=== PATIENT | male | born 1960 | race Caucasian/White ===

== ENCOUNTER → 2020-05-09 | Outpatient (CLI) | payer BC ==
--- NOTE | 2020-05-09 11:46 | XR ---
EXAMINATION TYPE: XR KUB DATE OF EXAM: 05/09/2020 9:11 AM CLINICAL HISTORY: Left upper flank pain for one month TECHNIQUE: Supine images of the abdomen and pelvis were obtained. The uppermost aspect of the abdomen and hemidiaphragms are not included on imaging. COMPARISON: None. FINDINGS: The left renal shadow is seen entirety, with overlying tiny densities which may represent c alculi versus fecal contents. The right renal shadow is not completely visualized and obscured by ove rlying bowel gas. The bowel gas pattern is nonspecific. Degenerative changes of the spine and bilater al hips. There is large lateral bridging osteophyte of L1-L2 on the left. Pelvic phleboliths. IMPRESSION: 1. Tiny densities overlying the left renal shadow may represent tiny calculi versus overlying fecal c ontents. The included right renal shadow is obscured by overlying bowel. 2. Nonspecific bowel gas pattern 3. Marked degenerative changes of the spine and bilateral hips.
== END | disposition home or self-care (01) ==
LOC: RADXRMAIN 09:00
PROVIDERS: ATTEND Family Medicine
DX: N28.89 Other specified disorders of kidney and ureter (principal)
CPT/HCPCS: 74018

== ENCOUNTER 2020-06-07 08:48 | Day surgery (SDC) | payer BC ==
[2020-06-05 09:26] VITALS: BMI 30.8
[~2020-06-07 08:48] MED LIST: LACTATED RINGERS 1,000 ML IV SCH; LIDOCAINE 1% (10MG/ML) FOR IV START INTRADERMA PRN
[2020-06-07 09:31] VITALS: TEMP 97.8
[2020-06-07] MEDS ORDERED: PROPOFOL 10 MG/ML 20 ML VIAL IV ONE (09:58)
--- NOTE | 2020-06-07 10:02 | P.GSHP ---
History of Present Illness H&P Date: 06/07/20 Chief Complaint: GI bleed This a 60-year-old male who presents today for colonoscopy. He's had issues with rectal bleeding. Past Medical History Past Medical History: GERD/Reflux, Hypertension, Mitral Valve Prolapse (MVP) Additional Past Medical History / Comment(s): HAD BLOOD IN STOOL History of Any Multi-Drug Resistant Organisms: None Reported Past Surgical History: Orthopedic Surgery, Tonsillectomy Additional Past Surgical History / Comment(s): rt rotator cuff , COLONOSCOPY Past Anesthesia/Blood Transfusion Reactions: No Reported Reaction Smoking Status: Never smoker - Past Family History Mother Family Medical History: Cancer Medications and Allergies Home Medications Medication Instructions Recorded Confirmed Type NIFEdipine [Procardia XL] 30 mg PO DAILY 06/05/20 06/07/20 History Pantoprazole Sodium 40 mg PO DAILY 06/05/20 06/07/20 History Allergies Allergy/AdvReac Type Severity Reaction Status Date / Time No Known Allergies Allergy Verified 06/07/20 09:31 Surgical - Exam Vital Signs Temp Pulse Resp BP Pulse Ox 97.8 F 72 17 150/105 96 06/07/20 09:29 06/07/20 09:29 06/07/20 09:29 06/07/20 09:29 06/07/20 09:29 - General well developed, well nourished - Eyes PERRL - ENT normal pinna - Neck no masses - Respiratory normal expansion - Cardiovascular Rhythm: regular - Abdomen Abdomen: soft, non tender Assessment and Plan Assessment: GI bleed. We'll perform colonoscopy.
--- NOTE | 2020-06-07 10:19 | P.OP ---
Date of Procedure: 06/07/20 Preoperative Diagnosis: GI bleed Postoperative Diagnosis: Diverticulosis Rectal polyp Procedure(s) Performed: Colonoscopy Anesthesia: MAC Surgeon: Sunil Xavier Pathology: other (Rectal polyp) Condition: stable Disposition: PACU Description of Procedure: The patient's placed on the endoscopy table in the lateral position. He received IV sedation. Digital rectal exam was performed which revealed no ebonized. The scope was then placed patient anus passed throughout the entire colon. The ileocecal valve visualized. The cecum, ascending and transverse colon appeared normal. The descending; was mild diverticular changes. Scope was then brought back the rectum and this was examined there was a small sessile polyp this was removed with cold forcep. Scope was withdrawn for patient. There is no no evidence rectal bleeding is. The patient may have had a diverticular bleed. However there is no active bleeding seen today.
[2020-06-07 10:21] VITALS: RESP 16
[2020-06-07 10:39] VITALS: BP 122/80; PULSE 65
== END 2020-06-07 10:47 | disposition home or self-care (01) ==
LOC: ORWHC2ENDO 08:48
PROVIDERS: ATTEND Surgery
DX: K62.1 Rectal polyp (principal); K57.30 Diverticulosis of large intestine without perforation or abscess without bleeding; I10 Essential (primary) hypertension; K21.9 Gastro-esophageal reflux disease without esophagitis; I34.1 Nonrheumatic mitral (valve) prolapse; Z79.899 Other long term (current) drug therapy; Z98.890 Other specified postprocedural states; Z90.89 Acquired absence of other organs; Z80.9 Family history of malignant neoplasm, unspecified
CPT/HCPCS: 88305; 45380; J2704

== ENCOUNTER → 2022-08-04 | Outpatient (CLI) | payer BC ==
--- NOTE | 2022-08-05 01:16 | MR ---
EXAMINATION TYPE: MR knee LT wo con DATE OF EXAM: 08/04/2022 COMPARISON: None HISTORY: Left knee pain, locking, and swelling for 2 months. Multiplanar multiecho imaging of the left knee performed without contrast. The anterior and posterior cruciate ligaments are intact. There is a moderate knee joint effusion. Th e collateral ligaments are intact. The medial and lateral menisci appear intact. No evidence of a fra cture. No bony destructive process. IMPRESSION: Moderate sized knee joint effusion. No evidence of ligamentous or meniscal tear. No fracture seen.
== END | disposition home or self-care (01) ==
LOC: RADMRIMAIN 18:22
PROVIDERS: ATTEND Orthopaedic Surgery
DX: M25.462 Effusion, left knee (principal); M25.562 Pain in left knee

== ENCOUNTER → 2022-08-26 | Outpatient (CLI) | payer BC ==
--- NOTE | 2022-08-29 08:11 | MR ---
EXAMINATION TYPE: MR knee RT wo con DATE OF EXAM: 08/26/2022 COMPARISON: Contralateral knee MRI 08/04/2022 HISTORY: PAIN IN RIGHT KNEE TECHNIQUE: Multiplanar, multisequence imaging of the right knee is performed without IV contrast. FINDINGS: MEDIAL MENISCUS: High PD signal that extends to the undersurface of the meniscal body and also affect s the posterior horn. There is free edge fraying of the meniscal body and anterior horn. LATERAL MENISCUS: Anterior and posterior horns are intact without tear. CRUCIATE LIGAMENTS: The anterior and posterior cruciate ligaments are intact and unremarkable. COLLATERAL LIGAMENTS: The medial collateral ligament and lateral collateral ligament complex are inta ct and unremarkable. EXTENSOR MECHANISM: Visualized quadriceps and patellar tendons are intact. EFFUSION: No significant suprapatellar joint effusion. POPLITEAL CYST: Small popliteal fossa cyst measuring up to 10 mm x 18 mm. CARTILAGE: There is cartilage thinning most pronounced on the medial femoral condyle but also affecti ng the trochlear groove of the patellofemoral joint and the lateral femoral condyle. There is no full -thickness cartilage defects identified. BONE MARROW SIGNAL: No focal abnormal marrow signal is appreciated. OTHER: No additional significant abnormality is appreciated. IMPRESSION: 1. Medial meniscus body complex undersurface tear which extends into the posterior horn. 2. ACL/PCL/collateral ligaments are intact.
== END | disposition home or self-care (01) ==
LOC: RADMRIMAIN 15:59
PROVIDERS: ATTEND Orthopaedic Surgery
DX: M23.321 Other meniscus derangements, posterior horn of medial meniscus, right knee (principal)

== ENCOUNTER → 2022-09-02 | Outpatient (CLI) | payer BC ==
--- NOTE | 2022-09-03 14:22 | MR ---
EXAMINATION TYPE: MR shoulder LT wo con DATE OF EXAM: 09/02/2022 COMPARISON: Radiograph 08/26/2022 and previous MRI 10/06/2015 HISTORY: 62-year-old male M25.512, LEFT SHOULDER PAIN TECHNIQUE: Multiplanar, multisequence imaging of the left shoulder is performed without contrast. FINDINGS: There is abnormal signal at the junction of this intracapsular and extracapsular portions of the long head biceps tendon that could represent a partial tear or marked tendinosis. Slight medial tendon subluxation in the bicipital groove suggests attritional tearing of the superior aspect of the subscapularis tendon. Is an additional, there is a 6 mm bursal sided tear of the middl e third fibers and 6 mm articular sided tear of the inferior fibers. The majority of the tendon remai ns intact but is inhomogeneous in signal intensity. Diffuse bursal sided fraying of posterior distended and infraspinatus tendons. Some fluid delaminates along the myotendinous junction of both tendons. There is a full-thickness 1.3 x 1.3 cm tear at the footprint of the anterior to mid to distal penobscot tendon. Intrasubstance change extends throughout th e remainder of the supraspinatus and infraspinatus tendons. No atrophy of the rotator cuff musculature. There is moderate degenerative change of the AC joint with capsular thickening. Inferior spurring abu ts the myotendinous junction of the supraspinatus. Mild thinning of superior humeral head articular cartilage. There is irregular signal within the supe rior labrum extending down to the mid aspect of the posterior labrum. Small 5 mm superior paravertebr al cyst suggested. No significant joint effusion. [id number] tenosynovial fluid along the bicipital groove. Trace fluid within the subacromial/subdeltoid bursa. No Hill-Sachs deformity or os acromiale. No suspicious bone marrow replacement. IMPRESSION: 1. Diffuse rotator cuff tendinosis. A 1.3 x 1.3 cm full-thickness tear at the footprint of the anteri or to mid supraspinatus tendon has progressed from 2016. Bursal sided fraying throughout. No rotator cuff muscle atrophy. 2. Areas of partial-thickness tearing throughout the subscapularis tendon. The majority of the tendon remains intact. 3. Progression to either severe tendinosis or partial tear at the junction of the intracapsular and e xtracapsular portions of the long head biceps tendon. 4. Moderate AC joint OA slightly progressed in the interval. Mild subacromial impingement. 5. Suspect SLAP tear extending back to the mid aspect of the posterior labrum.
== END | disposition home or self-care (01) ==
LOC: RADMRIMAIN 07:52
PROVIDERS: ATTEND Orthopaedic Surgery
DX: M75.112 Incomplete rotator cuff tear or rupture of left shoulder, not specified as traumatic (principal); M19.012 Primary osteoarthritis, left shoulder

== ENCOUNTER → 2024-10-17 | Outpatient (CLI) | payer BC ==
--- NOTE | 2024-10-17 12:06 | MR ---
EXAMINATION TYPE: MR shoulder RT wo con DATE OF EXAM: 10/17/2024 11:43 AM COMPARISON: Outside right shoulder x-ray October 03, 2024 CLINICAL INDICATION: Male, 64 years old with history of R shoulder pain, Right shoulder pain, decreas ed ROM, hx surgery 2007. IV Contrast: cc (None if empty) TECHNIQUE: Multiplanar, multisequence imaging of the right shoulder is performed without contrast. FINDINGS: Rotator Cuff: Increased signal is seen along the infraspinatus tendon with some surrounding fluid. Th ere is a full-thickness retracted tear of the supraspinatus tendon up to the level of the distal clav icle. There is heterogeneous subscapularis tendon with surrounding fluid. Mild atrophy of the suprasp inatus and subscapularis muscle bulk is seen. Acromioclavicular Joint: Moderate spurring and narrowing is seen. There is severe capsular hypertroph y extending superiorly. Loss of underlying fat plane is noted. Glenohumeral Joint: Moderate size joint effusion with narrowing is seen. No significant spurring is p resent. Labrum: Blunting and increased signal superior labrum consistent with tear.. Biceps Tendon: The long head of biceps is in anterior location from the bicipital groove. Intracapsul ar portion is not well visualized and likely torn. Bone marrow signal: Subchondral cystic change involving the lateral aspect of the humeral head. Other: No additional significant abnormality is appreciated. IMPRESSION: 1. Tendinosis of the infraspinatus tendon. More prominent tendinosis of the subscapularis tendon. Ful l-thickness retracted tear of the supraspinatus tendon. 2. Moderate to severe degenerative changes are present as detailed above. 3. Superior labral tear. Likely tear and at least subluxation of long head of biceps tendon. [facility], , 10/17/2024 12:04 PM
== END | disposition home or self-care (01) ==
LOC: RADMRIMAIN 10:51
PROVIDERS: ATTEND Orthopaedic Surgery
DX: M19.011 Primary osteoarthritis, right shoulder (principal); M67.813 Other specified disorders of tendon, right shoulder; M75.111 Incomplete rotator cuff tear or rupture of right shoulder, not specified as traumatic